=== PATIENT | female | born 1950 | race Caucasian/White ===

== ENCOUNTER 2019-02-22 08:00 | Day surgery (SDC) | payer MEDICARE, OTHER ==
[2019-02-22] MEDS ORDERED: PROPOFOL 40 ML (08:54)
[2019-02-22] MEDS ORDERED: GLYCOPYRROLATE 0.4 MG INJ (10:24)
== END 2019-02-22 12:36 | disposition home or self-care (01) ==
LOC: GIL 08:00
DX: R19.4 Change in bowel habit (principal); K64.8 Other hemorrhoids; K57.30 Diverticulosis of large intestine without perforation or abscess without bleeding; Z79.82 Long term (current) use of aspirin
CPT/HCPCS: 45378